=== PATIENT | female | born 1940 | race Caucasian/White ===

== ENCOUNTER 2017-09-01 10:11 | Emergency (ER) | payer BC ==
[~2017-09-01] VITALS: Ht 157.5 cm; Wt 109.4 kg
[~2017-09-01 10:11] MED LIST: ASPEC81 PO; CLTP PO; CYAN10004 PO; DIAZ-165 PO; GLIP1TAB85 PO; INSDGI SC; LEVO137T14 PO; MAGN400T5 PO; METO50TA8 PO; MULTTAB58 PO; OMEG10007 PO; OMEP20CA9 PO; RANI150T85 PO; TELM80TA PO; TOLT4CAP PO
[2017-09-01 10:26] VITALS: TEMP 36.4; Ht 157.5 cm; Wt 109.4 kg
[2017-09-01] MEDS ORDERED: ASPIRIN 81 MG CHEW PO STA (10:33)
[2017-09-01] MEDS ORDERED: TELMISARTAN 40 MG TAB PO STA (10:46)
--- NOTE | 2017-09-01 10:52 | EMERGENCY ROOM VISIT NOTE ---
History Report prepared by Felisha: Denisa Montenegro Under the Supervision of: Dr. Clyde Ramos M.D. First contact with patient: 10:31 Chief Complaint: HYPERTENSION Stated Complaint: HIGH BLOOD PRESSURE, IRREGULAR HEART BEAT History of Present Illness The patient is a 77 year old female who presents to the Emergency Room with complaints of constant hypertension beginning this morning. The patient reports she started to have an episode of "pins and needles" in hands and feet occurring last night. The patient believes she has neuropathy. She states her symptoms of "pins and needles" lead her to take her blood pressure this morning with her home monitor. She reports her blood pressure machine read that she was hypertensive with an irregular heart beat. The patient notes a headache beginning at 7 am this morning. She denies any chest pain or shortness of breath. The patient has a history of incontinence, yeast infections, hypertension, and high cholesterol. The patient states she did not take her hypertension medication this morning. Source of History: patient Onset: this morning Position: other (generalized) Quality: other (hypertension) Timing: constant Associated Symptoms: No chest pain, No SOB Review of Systems See HPI for pertinent positives and negatives. A total of ten systems were reviewed and were otherwise negative. Past Medical & Surgical Medical Problems: (1) Chronic kidney disease (2) Diabetes (3) Hypertension (4) S/P hernia repair Surgical Problems: (1) S/P hysterectomy (2) S/P knee replacement Family History Gallbladder disease Heart disease Hypertension Social History Smoking Status: Never Smoker Alcohol Use: none Marital Status: Housing Status: lives with family Occupation Status: retired Current/Historical Medications Scheduled Aspirin (Aspir-81), 81 MG PO DAILY Calcium Carbonate-Vitamin D (Calcium/Vitamin D), 1 CAP PO DAILY Cholecalciferol (Vitamin D3), 1,000 UNITS PO DAILY Coenzyme Q10 (Ubidecarenone) (Coq-10), 30 MG PO DAILY Cyanocobalamin (Vitamin B-12 1000 Mcg), 1,000 MCG PO DAILY Diazepam (Valium), 5 MG PO PRN Fish Oil ([place]-3), 1 CAP PO DAILY Glipizide Xl (Glucotrol Xl), 15 MG PO QAM Insulin Glargine (Lantus), 35 UNITS SC NOON Levothyroxine Sodium (Levothyroxine Sodium), 137 MCG PO DAILY Magnesium Oxide (Mag-Ox), 400 MG PO DAILY Metoprolol Succ (Toprol Xl) (Toprol-Xl), 50 MG PO BID Omeprazole (Prilosec), 20 MG PO DAILY Potassium Chloride (Micro-K Ext Rel), Unknown Dose PO DAILY Rosuvastatin Calcium (Crestor), 5 MG PO DAILY Telmisartan/Hctz (Micardis Hct 80MG/12.5MG), 1 TAB PO DAILY Tolterodine Tartrate (Detrol La), 4 MG PO DAILY Allergies Coded Allergies: Codeine (Verified Allergy, Unknown, 09/01/17) Physical Exam Vital Signs Date Time Temp Pulse Resp B/P (MAP) Pulse Ox O2 Delivery O2 Flow Rate FiO2 09/01/17 14:25 66 18 184/85 98 Room Air 09/01/17 13:34 66 20 178/103 98 Room Air 09/01/17 13:11 68 09/01/17 12:57 68 20 144/102 97 Room Air 09/01/17 12:19 97 Room Air 09/01/17 12:16 65 18 211/63 97 Room Air 09/01/17 11:29 71 20 193/70 96 Room Air 09/01/17 10:55 70 09/01/17 10:53 95 Room Air 09/01/17 10:26 36.4 76 20 191/79 97 Room Air Physical Exam Physical Exam GENERAL: She is oriented to person, place, and time. She appears well- developed and well-nourished. She does not appear distressed. ____ HENT: Exam performed. Head: Normocephalic and atraumatic. Right Ear: External ear normal. No mastoid tenderness. Left Ear: External ear normal. No mastoid tenderness. Mouth/Throat: The oropharynx is clear and moist. No trismus in the jaw. No dental abscesses or uvula swelling. No oropharyngeal exudate or tonsillar abscesses. ____ EYES: Conjunctivae and EOM are normal. Pupils are equal, round, and reactive to light. Right eye exhibits no discharge. Left eye exhibits no discharge. No scleral icterus. ____ NECK: Normal range of motion. Neck supple. No JVD present. No spinous process tenderness present. No carotid bruit present. No rigidity. No tracheal deviation and normal range of motion present. No Brudzinski's sign and no Kernig 's sign noted. ____ CV: Normal rate, regular rhythm, normal heart sounds and intact distal pulses. There is no peripheral edema. Palpable radial pulses bue. ____ PULM/CHEST: Effort normal and breath sounds normal. No respiratory distress. No stridor. She has no wheezes. She has no rales. Chest Wall: She exhibits no tenderness. ____ ABD: The abdomen is soft. Bowel sounds are normal. She has no distension. No mass is present. There is no tenderness. There is no rebound, no guarding, no Sanches's sign and no tenderness at McBurney's point. Rovsig negative MUSC/SKEL: Normal range of motion. There is no peripheral edema, tenderness or deformity. LYMPH: No cervical adenopathy. ____ NEURO: She is alert and oriented to person, place, and time. She has normal strength. No cranial nerve deficit or sensory deficit. Coordination and gait normal. GCS eye subscore is 4. GCS verbal subscore is 5. GCS motor subscore is 6. Cerebellar tests wnl. ____ SKIN: Skin is warm and dry. She is not diaphoretic. ____ PSYCH: She has a normal mood and affect. Her behavior is normal. Judgment and thought content normal. ____ Medical Decision & Procedures ER Provider Diagnostic Interpretation: HEAD WITHOUT CONTRAST (CT) Findings: The paranasal sinuses and mastoid air cells are clear. The calvarium and skull base are intact. The ventricles and sulci are within normal limits. There is no mass, hematoma, midline shift, or acute infarct. Mild age-related chronic small vessel change Impression: No acute intracranial abnormality. Mild age-related chronic small vessel change. The above report was generated using voice recognition software. It may contain grammatical, syntax or spelling errors. Electronically signed by: Tano Escalante M.D. CHEST 2 VIEWS ROUTINE FINDINGS: Cardiac silhouette is again enlarged, unchanged. Atherosclerosis of the aorta. Lungs are mildly hyperinflated. There is no pneumothorax, pleural effusion, focal airspace consolidation or overt pulmonary edema. Calcification granulomas are noted at the left lung base. Bones of the chest appear grossly intact. Degenerative changes involve the shoulders and spine. Surgical clips of the upper abdomen suggest prior cholecystectomy. IMPRESSION: Cardiomegaly without acute process. The above report was generated using voice recognition software. It may contain grammatical, syntax or spelling errors. Electronically signed by: Deep Rodriguez M.D. Laboratory Results 09/01/17 11:15 Red Blood Count 4.85, Mean Corpuscular Volume 88.0, Mean Corpuscular Hemoglobin 30.5, Mean Corpuscular Hemoglobin Concent 34.7, Mean Platelet Volume 10.2, Neutrophils (%) (Auto) 73.3, Lymphocytes (%) (Auto) 19.1, Monocytes (%) (Auto) 6.3, Eosinophils (%) (Auto) 0.8, Basophils (%) (Auto) 0.3, Neutrophils # (Auto) 6.47, Lymphocytes # (Auto) 1.69, Monocytes # (Auto) 0.56, Eosinophils # (Auto) 0.07, Basophils # (Auto) 0.03 09/01/17 11:15 Test 09/01/17 11:15 White Blood Count 8.84 K/uL (4.8-10.8) Red Blood Count 4.85 M/uL (4.2-5.4) Hemoglobin 14.8 g/dL (12.0-16.0) Hematocrit 42.7 % (37-47) Mean Corpuscular Volume 88.0 fL (80-100) Mean Corpuscular Hemoglobin 30.5 pg (25-34) Mean Corpuscular Hemoglobin Concent 34.7 g/dl (32-36) Platelet Count 217 K/uL (130-400) Mean Platelet Volume 10.2 fL (7.4-10.4) Neutrophils (%) (Auto) 73.3 % Lymphocytes (%) (Auto) 19.1 % Monocytes (%) (Auto) 6.3 % Eosinophils (%) (Auto) 0.8 % Basophils (%) (Auto) 0.3 % Neutrophils # (Auto) 6.47 K/uL (1.4-6.5) Lymphocytes # (Auto) 1.69 K/uL (1.2-3.4) Monocytes # (Auto) 0.56 K/uL (0.11-0.59) Eosinophils # (Auto) 0.07 K/uL (0-0.5) Basophils # (Auto) 0.03 K/uL (0-0.2) RDW Standard Deviation 42.8 fL (36.4-46.3) RDW Coefficient of Variation 13.3 % (11.5-14.5) Immature Granulocyte % (Auto) 0.2 % Immature Granulocyte # (Auto) 0.02 K/uL (0.00-0.02) Anion Gap 7.0 mmol/L (3-11) Est Creatinine Clear Calc Drug Dose 39.1 ml/min Estimated GFR () 42.8 Estimated GFR (Non- 36.9 BUN/Creatinine Ratio 18.1 (10-20) Calcium Level 9.5 mg/dl (8.5-10.1) Troponin I < 0.015 ng/ml (0-0.045) Chemistry Specimen Hemolysis Laboratory results reviewed by me Medications Administered Medications (Trade) Dose Ordered Sig/Gloria Route Start Time Stop Time Status Last Admin Dose Admin Aspirin (Aspirin Chew) 324 mg NOW STAT PO 09/01/17 10:33 09/01/17 10:41 DC 09/01/17 11:29 324 MG Telmisartan (Micardis Tab) 80 mg NOW STAT PO 09/01/17 10:46 09/01/17 10:48 DC 09/01/17 11:29 80 MG Lorazepam (Ativan Inj) 1 mg NOW STAT IV 09/01/17 11:11 09/01/17 11:12 DC 09/01/17 11:30 1 MG ECG Per My Interpretation Indication: other (hypertension) Rate (beats per minute): 80 Rhythm: sinus with SA Findings: other (OH, QRS, QTC within normal limits, no ST elevation or ST depression ) ED Course 1032: The patient was evaluated in room C7. A complete history and physical exam was performed. 1033: Ordered Aspirin 324 mg PO. 1046: Ordered home dose of telmisartan 80 mg PO. 1111: Ordered Lorazepam 1 mg IV per patient's request because she states she is too nervous to get CT scan and needs something to calm her down. 1425: The patient remains hypertensive through her stay in the ED. Labs showed a elevated creatinine of 1.36 and her previous was 1.2, otherwise labs within normal limits. CT within normal limits. The patient states she feels fine and that all of her symptoms are resolved. It is believed her elevated blood pressure is due to her noncompliance with her medications. The patient will follow up with her PCP and was advised to take her medications as prescribed. DISCHARGE - Plan of care discussed with family and questions answered. The family was given both verbal and printed discharge instructions. The family verbalized understanding and ability to comply. The family is to seek outpatient follow up as noted in the discharge instructions. The family verbalized understanding and ability to comply. The family is discharged in stable condition. The family was instructed to return for worsening symptoms. Medical Decision The patient remains hypertensive through her stay in the ED. Labs showed a elevated creatinine of 1.36 and her previous was 1.2, otherwise labs within normal limits. CT within normal limits. The patient states she feels fine and that all of her symptoms are resolved. It is believed her elevated blood pressure is due to her noncompliance with her medications. The patient will follow up with her PCP and was advised to take her medications as prescribed. DISCHARGE - Plan of care discussed with family and questions answered. The family was given both verbal and printed discharge instructions. The family verbalized understanding and ability to comply. The family is to seek outpatient follow up as noted in the discharge instructions. The family verbalized understanding and ability to comply. The family is discharged in stable condition. The family was instructed to return for worsening symptoms. Medication Reconcilliation Current Medication List: was personally reviewed by me Blood Pressure Screening Patient's blood pressure: Elevated blood pressure Blood pressure disposition: Referred to PCP Impression Primary Impression: Headache Additional Impression: Hypertension Scribe Attestation The scribe's documentation has been prepared under my direction and personally reviewed by me in its entirety. I confirm that the note above accurately reflects all work, treatment, procedures, and medical decision making performed by me. The chart was completed utilizing [employer] voice recognition software. Grammatical errors, random word insertions, pronoun errors, and incomplete sentences are an occasional consequence of this system due to software limitations, ambient noise, and hardware issues. Any formal questions or concerns about the content, text, or information contained within the body of this dictation should be directly addressed to the physician for clarification. Departure Information Dispostion Home / Self-Care Referrals Yanelis Bosch D.O. (PCP) Forms HOME CARE DOCUMENTATION FORM, IMPORTANT VISIT INFORMATION, WORK / SCHOOL INSTRUCTIONS Patient Instructions Headache Migraine Meds Lifestyle, Headache Migraine Triggers Prevent, Headaches Migraine and Tension, Hypertension Dc, My [facility] Additional Instructions Take your blood pressure medication as directed. Avoid eating a lot of salt. Return to the emergency department if you develop fever greater 100.4, chest pain, difficult breathing, palpitations, lose consciousness, seizure Problem Qualifiers Primary Impression: Headache Headache type: unspecified Headache chronicity pattern: unspecified pattern Intractability: not intractable Qualified Codes: R51 - Headache Additional Impression: Hypertension Hypertension type: unspecified Qualified Codes: I10 - Essential (primary) hypertension
[2017-09-01] MEDS ORDERED: LORAZEPAM 2 MG/ML 1 ML VIAL IV STA (11:11)
[2017-09-01 11:32] LABS: BASO % 0.3 %; BASO ABS # 0.03 K/uL (0-0.2); EOS % 0.8 %; EOS ABS # 0.07 K/uL (0-0.5); HEMATOCRIT 42.7 % (37-47); HEMOGLOBIN 14.8 g/dL (12.0-16.0); IG# 0.02 K/uL (0.00-0.02); LYMPH % 19.1 %; LYMPH ABS # 1.69 K/uL (1.2-3.4); MEAN CORPUSCULAR HEMOGLOBIN 30.5 pg (25-34); MEAN CORPUSCULAR HGB CONC 34.7 g/dl (32-36); MEAN PLATELET VOLUME 10.2 fL (7.4-10.4); MONO % 6.3 %; MONO ABS # 0.56 K/uL (0.11-0.59); NEUT % 73.3 %; NEUT ABS # 6.47 K/uL (1.4-6.5); PLATELET COUNT 217 K/uL (130-400); RED CELL DISTRIBUTION WIDTH CV 13.3 % (11.5-14.5); RED CELL DISTRIBUTION WIDTH SD 42.8 fL (36.4-46.3); WHITE BLOOD COUNT 8.84 K/uL (4.8-10.8)
[2017-09-01 11:51] LABS: BLOOD UREA NITROGEN 25 mg/dl (7-18); CALCIUM 9.5 mg/dl (8.5-10.1); CARBON DIOXIDE 24 mmol/L (21-32); CREATININE 1.36 mg/dl (0.60-1.20); GLUCOSE 249 mg/dl (70-99); POTASSIUM 4.5 mmol/L (3.5-5.1); SODIUM 138 mmol/L (136-145)
--- NOTE | 2017-09-01 12:02 | DIAGNOSTIC IMAGING REPORT ---
HEAD WITHOUT CONTRAST (CT) CT DOSE: 788.63 mGycm HISTORY: Headache. Hypertension. gerber onset 0700 TECHNIQUE: Multiaxial CT images of the head were performed without the use of intravenous contrast. A dose lowering technique was utilized adhering to the principles of ALARA. Comparison: None. Findings: The paranasal sinuses and mastoid air cells are clear. The calvarium and skull base are intact. The ventricles and sulci are within normal limits. There is no mass, hematoma, midline shift, or acute infarct. Mild age-related chronic small vessel change Impression: No acute intracranial abnormality. Mild age-related chronic small vessel change. The above report was generated using voice recognition software. It may contain grammatical, syntax or spelling errors. Electronically signed by: Tano Escalante M.D. 09/01/2017 12:00 PM Dictated Date/Time: 09/01/2017 11:55 AM
[2017-09-01 12:19] VITALS: O2SAT 97
--- NOTE | 2017-09-01 13:24 | DIAGNOSTIC IMAGING REPORT ---
CHEST 2 VIEWS ROUTINE HISTORY: 77 years-old Female palpitations high blood pressure with cardiac palpitations COMPARISON: Chest radiograph 11/21/2014 TECHNIQUE: PA and lateral views of the chest FINDINGS: Cardiac silhouette is again enlarged, unchanged. Atherosclerosis of the aorta. Lungs are mildly hyperinflated. There is no pneumothorax, pleural effusion, focal airspace consolidation or overt pulmonary edema. Calcification granulomas are noted at the left lung base. Bones of the chest appear grossly intact. Degenerative changes involve the shoulders and spine. Surgical clips of the upper abdomen suggest prior cholecystectomy. IMPRESSION: Cardiomegaly without acute process. The above report was generated using voice recognition software. It may contain grammatical, syntax or spelling errors. Electronically signed by: Deep Rodriguez M.D. 09/01/2017 1:23 PM Dictated Date/Time: 09/01/2017 1:21 PM
[2017-09-01] MEDS ORDERED: COEN30CA8 PO (14:04)
[2017-09-01] MEDS ORDERED: INSDGI SC (14:04)
[2017-09-01] MEDS ORDERED: SYN137 PO (14:04)
[2017-09-01] MEDS ORDERED: TELM80TA6 PO (14:04)
[2017-09-01] MEDS ORDERED: ASPI-232 PO (14:04)
[2017-09-01] MEDS ORDERED: CALCCAP17 PO (14:04)
[2017-09-01] MEDS ORDERED: POTA10CA28 PO (14:05)
[2017-09-01] MEDS ORDERED: CHOL1000 PO (14:05)
[2017-09-01] MEDS ORDERED: ROSU5TAB PO (14:05)
[2017-09-01 14:25] VITALS: BP 184/85; PULSE 66; O2SAT 98
== END 2017-09-01 14:35 | disposition home or self-care (01) ==
LOC: C.EDB 10:12 → C.EDC 14:35
DX: R51 Headache (principal); I10 Essential (primary) hypertension; E78.00 Pure hypercholesterolemia, unspecified; E11.9 Type 2 diabetes mellitus without complications; Z82.49 Family history of ischemic heart disease and other diseases of the circulatory system; Z83.79 Family history of other diseases of the digestive system; Z79.82 Long term (current) use of aspirin; Z79.4 Long term (current) use of insulin; Z79.899 Other long term (current) drug therapy